=== PATIENT | female | born 1940 | race Caucasian/White ===

== ENCOUNTER 2016-06-10 19:14 | Observation (INO) | payer OTHER ==
[~2016-06-10] VITALS: Ht 157.5 cm; Wt 81.2 kg
[~2016-06-10 19:14] MED LIST: AMBIEN10 M1 PO; BYETTA; BYETTA PEN250 MCG/M1; BYETTA PEN250 MCG/M1 SC; BYETTA PEN250 MCG/ML PO; COLCRYS0.6 MG PO; GLUCOPHAGE500 MG PO; HUMULIN 70100 UNIT/1; HUMULIN 70100 UNIT/2 SQ; INDOCIN50 MG PO; LASIX40 MG PO; LIPITOR10 MG PO; LIPITOR80 MG PO; METFORMIN HCL500 MG PO; METOPROLOL SUCC25 MG PO; METOPROLOL TART25 MG PO; NITROGLYCERIN0.4 MG SL; NITROSTAT,NITR0.4 M1 SL; NITROSTAT0.4 MG SL; PLAVIX75 MG PO; PRILOSEC40 MG; PRILOSEC40 MG PO; TRICOR145 MG PO; ULTRAM50 MG PO; ZANTAC150 M1 PO; ZANTAC150 MG PO; ZETIA10 MG PO
[2016-06-10 19:43] LABS: HEMATOCRIT 34.7 % (36.0-46.0); MCH 26.7 PG (29.0-34.0); MCV 89.2 FL (83-99); MEAN PLAT.VOLUME 10.8 uM^3 (9.5-12.4); PLATELET COUNT 166 K/uL (156-360); RBC DIS.WIDTH-CV 16.4 % (11.8-14.6); RBC DIS.WIDTH-SD 53.5 % (39-53); RED BLOOD COUNT 3.89 M/uL (3.80-5.20)
[2016-06-10 19:51] LABS: CHLORIDE 105 mEq/L (99-109); POTASSIUM 5.1 mEq/L (3.7-5.4); SODIUM 143 mEq/L (136-147)
[2016-06-10 19:53] LABS: GLUCOSE 147 mg/dL (70-99)
[2016-06-10 19:55] LABS: ANION GAP 9 MEQ/L (2-14)
[2016-06-10 19:57] LABS: GFR ESTIMATE (CALCULATED) 42 mL/min/
[2016-06-10 19:58] LABS: UREA NITROGEN (BUN) 29 mg/dL (9-23)
[2016-06-10 20:50] LABS: TROP-I INTERPRETATION NEGATIVE; TROPONIN-I < 0.01 ng/mL (0.0-0.30)
[2016-06-10] MEDS ORDERED: ATORVASTATIN CA40 MG PO (22:06)
[2016-06-10] MEDS ORDERED: CRESTOR40 MG PO (22:07)
[2016-06-10] MEDS ORDERED: NORCO 5/3251 TABLET PO (22:08)
[2016-06-10] MEDS ORDERED: MIRAPEX0.25 MG PO (22:09)
[2016-06-10] MEDS ORDERED: GLIMEPIRIDE1 MG PO (22:09)
[2016-06-11 01:07] VITALS: BP 103/53
[2016-06-11 02:05] LABS: POINT-OF-CARE METER ID UU13113700
[2016-06-11 03:48] LABS: HEMATOCRIT 30.6 % (36.0-46.0); MCH 26.8 PG (29.0-34.0); MCHC 30.4 G/DL (30.0-36.0); MCV 88.2 FL (83-99); MEAN PLAT.VOLUME 11.2 uM^3 (9.5-12.4); PLATELET COUNT 157 K/uL (156-360); RBC DIS.WIDTH-CV 16.2 % (11.8-14.6); RBC DIS.WIDTH-SD 52.7 % (39-53); RED BLOOD COUNT 3.47 M/uL (3.80-5.20); WHITE BLOOD COUNT 5.3 K/uL (4.1-10.2)
[2016-06-11 03:58] LABS: CHLORIDE 107 mEq/L (99-109); POTASSIUM 4.1 mEq/L (3.7-5.4); SODIUM 141 mEq/L (136-147)
[2016-06-11 04:00] LABS: GLUCOSE 158 mg/dL (70-99)
[2016-06-11 04:01] LABS: ANION GAP 7 MEQ/L (2-14)
[2016-06-11 04:02] LABS: TOTAL BILIRUBIN 0.2 mg/dL (0.0-1.0)
[2016-06-11 04:04] LABS: ALKALINE PHOSPHATASE 67 IU/L (3-129); GFR ESTIMATE (CALCULATED) 51 mL/min/
[2016-06-11 04:05] LABS: UREA NITROGEN (BUN) 29 mg/dL (9-23)
[2016-06-11 04:11] LABS: TROP-I INTERPRETATION NEGATIVE; TROPONIN-I < 0.01 ng/mL (0.0-0.30)
[2016-06-11 04:24] VITALS: BP 99/52
[2016-06-11 08:01] VITALS: BP 122/68
[2016-06-11 09:21] LABS: TROP-I INTERPRETATION NEGATIVE; TROPONIN-I < 0.01 ng/mL (0.0-0.30)
[2016-06-11 11:18] VITALS: BP 105/55
[2016-06-11 11:50] LABS: POINT-OF-CARE METER ID UU13113700
[2016-06-11] MEDS ORDERED: METOPROLOL TART25 MG PO (17:03)
== END 2016-06-11 13:55 | disposition home or self-care (01) ==
LOC: EME 19:14 → EDOF 23:05 → 5WEST 23:05
PROVIDERS: Hospitalist; Internal Medicine
DX: R07.89 Other chest pain (principal); N17.9 Acute kidney failure, unspecified; R60.0 Localized edema; R00.1 Bradycardia, unspecified; I25.10 Atherosclerotic heart disease of native coronary artery without angina pectoris; I25.2 Old myocardial infarction; Z95.5 Presence of coronary angioplasty implant and graft; I10 Essential (primary) hypertension; E78.5 Hyperlipidemia, unspecified; E11.9 Type 2 diabetes mellitus without complications; G20 Parkinson's disease; E78.00 Pure hypercholesterolemia, unspecified; K21.9 Gastro-esophageal reflux disease without esophagitis
CPT/HCPCS: 71020; 80048; 80053; 82948; 83880; 84484; 85027; 93005; 93306; G0378; J1644

== ENCOUNTER 2016-07-22 09:05 | Inpatient (IN) | payer OTHER ==
[~2016-07-22] VITALS: Ht 157.5 cm; Wt 72.6 kg
[~2016-07-22 09:05] MED LIST changes: +ATORVASTATIN CA40 MG PO; +CRESTOR40 MG PO; +GLIMEPIRIDE1 MG PO; +LOPRESSOR25 MG PO; +LYRICA50 MG PO; +MIRAPEX0.25 MG PO; +NORCO 5/3251 TABLET PO
[2016-07-22 11:24] VITALS: BP 135/60
[2016-07-22 12:04] LABS: POINT-OF-CARE METER ID UU14174212; POINT-OF-CARE USER ID AHSRSCSLC11
[2016-07-22 18:37] LABS: POINT-OF-CARE METER ID UU13113675
[2016-07-22 22:00] VITALS: BP 118/57
[2016-07-22 22:21] VITALS: BP 118/57
[2016-07-23] VITALS (15 sets, daily range): BP systolic 67–142; BP diastolic 34–92
[2016-07-23 06:09] LABS: POINT-OF-CARE METER ID UU14188577
[2016-07-23 16:49] LABS: EOSINOPHIL (%) 0.2 % (0-5); HEMATOCRIT 25.8 % (36.0-46.0); IMMATURE GRANULOCYTE (%) 0.4 % (0.0-0.7); INSTRUMENT ABS NEUTROPHIL CT 7.5 K/uL; LYMPHOCYTE COUNT 0.4 K/uL (1.0-2.8); MCH 27.1 PG (29.0-34.0); MCV 87.5 FL (83-99); MEAN PLAT.VOLUME 11.8 uM^3 (9.5-12.4); MONOCYTE (%) 6.7 % (3-12); MONOCYTE COUNT 0.6 K/uL (0-0.8); NEUTROPHIL (%) 88.2 % (45-76); NEUTROPHIL COUNT 7.5 K/uL (1.8-6.4); PLATELET COUNT 123 K/uL (156-360); RBC DIS.WIDTH-CV 15.6 % (11.8-14.6); RBC DIS.WIDTH-SD 49.9 % (39-53)
[2016-07-23 17:13] LABS: ANION GAP 8 MEQ/L (2-14); CHLORIDE 108 MEQ/L (99-109); POTASSIUM 4.1 MEQ/L (3.7-5.4); SAMPLE HEMOLYSIS CHECK 0; SAMPLE ICTERIC CHECK 0; SAMPLE LIPEMIA CHECK 0; SODIUM 139 MEQ/L (136-147)
[2016-07-23 17:18] LABS: GFR ESTIMATE (CALCULATED) 46 mL/min/; GLUCOSE 138 mg/dL (70-99); UREA NITROGEN (BUN) 22 mg/dL (9-23)
[2016-07-23 17:36] LABS: TROP-I INTERPRETATION NEGATIVE; TROPONIN-I 0.03 ng/mL (0.0-0.30)
[2016-07-23 18:01] LABS: RED BLOOD COUNT 2.95 M/uL (3.80-5.20); WHITE BLOOD COUNT 8.5 K/uL (4.1-10.2)
[2016-07-23 21:16] LABS: POINT-OF-CARE METER ID UU14188577
[2016-07-24] VITALS (8 sets, daily range): BP systolic 92–170; BP diastolic 44–64
[2016-07-24 05:22] LABS: EOSINOPHIL (%) 0.7 % (0-5); EOSINOPHIL COUNT 0.1 K/uL (0-0.3); HEMATOCRIT 31.5 % (36.0-46.0); IMMATURE GRANULOCYTE (%) 0.5 % (0.0-0.7); INSTRUMENT ABS NEUTROPHIL CT 7.4 K/uL; LYMPHOCYTE COUNT 0.6 K/uL (1.0-2.8); MCH 27.1 PG (29.0-34.0); MCHC 31.4 G/DL (30.0-36.0); MCV 86.3 FL (83-99); MEAN PLAT.VOLUME 11.8 uM^3 (9.5-12.4); MONOCYTE (%) 8.4 % (3-12); MONOCYTE COUNT 0.8 K/uL (0-0.8); NEUTROPHIL (%) 83.4 % (45-76); NEUTROPHIL COUNT 7.4 K/uL (1.8-6.4); PLATELET COUNT 123 K/uL (156-360); RBC DIS.WIDTH-SD 47.8 % (39-53); WHITE BLOOD COUNT 8.9 K/uL (4.1-10.2)
[2016-07-24 05:25] LABS: RED BLOOD COUNT 3.65 M/uL (3.80-5.20)
[2016-07-24 11:56] LABS: POINT-OF-CARE METER ID UU14149397
[2016-07-24 21:44] LABS: POINT-OF-CARE METER ID UU14188577
[2016-07-25 04:39] VITALS: BP 126/66
[2016-07-25 08:49] VITALS: BP 127/59
[2016-07-25 12:19] LABS: POINT-OF-CARE METER ID UU14188577
[2016-07-25 16:26] VITALS: BP 111/57
[2016-07-25] MEDS ORDERED: TRAMADOL HCL50 MG PO (16:46)
[2016-07-25] MEDS ORDERED: BACTRIM,SEPT1 TABLET PO (16:46)
[2016-07-25 16:56] LABS: POINT-OF-CARE METER ID UU14188577
[2016-07-25 17:22] LABS: GLUCOSE 61 mg/dL (70-99)
== END 2016-07-25 19:25 | DRG 460 ==
LOC: 2SOUTH → 3EAST 10:25 → 2SOUTH 12:42 → 3EAST 21:33
PROVIDERS: Neurological Surgery; Physician Assistant Surgical
DX: S32.030G Wedge compression fracture of third lumbar vertebra, subsequent encounter for fracture with delayed healing (principal); I95.9 Hypotension, unspecified; G20 Parkinson's disease; M48.06 Spinal stenosis, lumbar region; M54.16 Radiculopathy, lumbar region; M43.22 Fusion of spine, cervical region; E66.9 Obesity, unspecified; R41.82 Altered mental status, unspecified; I45.10 Unspecified right bundle-branch block; M81.0 Age-related osteoporosis without current pathological fracture
CPT/HCPCS: 70450; 71010; 72100; 76000; 80048; 82948; 84484; 84999; 85025; 86900; 86901; 86920; 87086; 93005; 94799; 97530 GO; 97530 GP; C1713; C1768; J0330; J0690; J1170; J1580; J1815; J1940; J2250; J2405; J2930; J3010; J3370; J3480; J7030; J7040; P9016; S0020

== ENCOUNTER 2016-09-16 09:46 | Observation (INO) | payer OTHER ==
[~2016-09-16] VITALS: Ht 157.5 cm; Wt 73.5 kg
[~2016-09-16 09:46] MED LIST changes: +BACTRIM,SEPT1 TABLET PO; +TRAMADOL HCL50 MG PO
[2016-09-16 10:38] LABS: ADD MIUA? YES; BILIRUBIN NEGATIVE; BLOOD SMALL; COLOR YELLOW ((YELLOW)); GLUCOSE (STRIP) NEGATIVE; KETONES NEGATIVE; LEUKOCYTES NEGATIVE; NITRITE NEGATIVE; PROTEIN (STRIP) 30; SPECIFIC GRAVITY 1.016 (1.000-1.030); UROBILINOGEN 0.2 MG/DL (0.2-1.0)
[2016-09-16 10:44] LABS: EOSINOPHIL (%) 1.1 % (0-5); EOSINOPHIL COUNT 0.1 K/uL (0-0.3); IMMATURE GRANULOCYTE (%) 0.3 % (0.0-0.7); INSTRUMENT ABS NEUTROPHIL CT 6.1 K/uL; LYMPHOCYTE COUNT 0.8 K/uL (1.0-2.8); MCHC 31.4 G/DL (30.0-36.0); MCV 85.9 FL (83-99); MEAN PLAT.VOLUME 10.9 uM^3 (9.5-12.4); MONOCYTE (%) 4.4 % (3-12); MONOCYTE COUNT 0.3 K/uL (0-0.8); NEUTROPHIL (%) 83.7 % (45-76); NEUTROPHIL COUNT 6.1 K/uL (1.8-6.4); PLATELET COUNT 144 K/uL (156-360); RED BLOOD COUNT 4.19 M/uL (3.80-5.20); WHITE BLOOD COUNT 7.2 K/uL (4.1-10.2)
[2016-09-16 10:54] LABS: CHLORIDE 104 mEq/L (99-109); SODIUM 139 mEq/L (136-147)
[2016-09-16 10:56] LABS: GLUCOSE 44 mg/dL (70-99)
[2016-09-16 10:57] LABS: ANION GAP 10 MEQ/L (2-14)
[2016-09-16 11:00] LABS: GFR ESTIMATE (CALCULATED) 51 mL/min/
[2016-09-16 11:01] LABS: UREA NITROGEN (BUN) 19 mg/dL (9-23)
[2016-09-16 11:11] LABS: TROP-I INTERPRETATION NEGATIVE; TROPONIN-I < 0.01 ng/mL (0.0-0.30)
[2016-09-16 11:36] LABS: BACTERIA 1+ /HPF; EPITHELIAL CELLS RARE /HPF; MUCUS NONE SEEN /LPF; RED BLOOD CELLS RARE /HPF (0-5); WHITE BLOOD CELLS NONE SEEN /HPF (0-5)
[2016-09-16] MEDS ORDERED: LASIX20 MG PO (12:26)
[2016-09-16] MEDS ORDERED: NITROSTAT0.4 MG SL (12:28)
[2016-09-16] MEDS ORDERED: TRAMADOL HCL50 MG PO (12:36)
[2016-09-16] MEDS ORDERED: ERGOCALCIF50000 UNIT PO (12:37)
[2016-09-16] MEDS ORDERED: PLAVIX75 MG PO (12:37)
[2016-09-16] MEDS ORDERED: CALCIUM 600 +1 EAC3 PO (12:38)
[2016-09-16] MEDS ORDERED: TYLENOL EXTRA500 MG PO (12:38)
[2016-09-16] MEDS ORDERED: PANTOPRAZOLE SO40 MG PO (12:39)
[2016-09-16] MEDS ORDERED: VITAMIN B-12250 MCG PO (12:39)
[2016-09-16 13:07] LABS: POINT-OF-CARE METER ID UU14100415
[2016-09-16 14:05] LABS: POINT-OF-CARE METER ID UU14100415
[2016-09-16 15:59] VITALS: BP 121/56
[2016-09-16 17:01] LABS: TROP-I INTERPRETATION NEGATIVE; TROPONIN-I 0.01 ng/mL (0.0-0.30)
[2016-09-16 18:56] LABS: GLUCOSE 206 mg/dL (70-99)
[2016-09-16 19:26] VITALS: BP 102/48
[2016-09-16 22:11] LABS: POINT-OF-CARE METER ID UU13113700
[2016-09-16 23:41] VITALS: BP 117/53
[2016-09-17 00:07] VITALS: BP 109/55
[2016-09-17 01:03] LABS: TROP-I INTERPRETATION NEGATIVE; TROPONIN-I 0.01 ng/mL (0.0-0.30)
[2016-09-17 02:01] LABS: POINT-OF-CARE METER ID UU14162513
[2016-09-17 03:59] VITALS: BP 120/57
[2016-09-17 06:09] LABS: POINT-OF-CARE METER ID UU14162513
[2016-09-17 09:23] VITALS: BP 152/72
[2016-09-17 10:51] LABS: POINT-OF-CARE METER ID UU14100415
[2016-09-17 11:32] VITALS: BP 138/65
[2016-09-17] MEDS ORDERED: ZOFRAN4 MG PO (14:26)
== END 2016-09-17 12:11 | disposition home or self-care (01) ==
LOC: EME 09:46 → EDOF 12:11 → 5WEST 12:11 → EDOF 12:11 → 5WEST 15:03
PROVIDERS: Emergency Medicine; Hospitalist; Internal Medicine
DX: E11.649 Type 2 diabetes mellitus with hypoglycemia without coma (principal); Z79.84 Long term (current) use of oral hypoglycemic drugs; I25.10 Atherosclerotic heart disease of native coronary artery without angina pectoris; I25.2 Old myocardial infarction; I10 Essential (primary) hypertension; E78.5 Hyperlipidemia, unspecified; G20 Parkinson's disease; Z79.02 Long term (current) use of antithrombotics/antiplatelets; Z83.3 Family history of diabetes mellitus; Z88.6 Allergy status to analgesic agent; Z91.040 Latex allergy status; Z88.8 Allergy status to other drugs, medicaments and biological substances
CPT/HCPCS: 70450; 71010; 80048; 81003; 82533 91; 82947 91; 82948; 83525; 84484; 84681 90; 85025; 93005; 99281; 99285; G0378; G8978 GP CI; G8979 GP CH; G8987 GO CI; G8988 GO CH; J1650; J7042

== ENCOUNTER → 2017-02-11 | Outpatient (CLI) | payer OTHER ==
[~2017-02-11] VITALS: Ht 157.5 cm; Wt 63.5 kg
[~2017-02-11] MED LIST changes: +CALCIUM 600 +1 EAC3 PO; +ERGOCALCIF50000 UNIT PO; +LASIX20 MG PO; +MIRAPEX0.5 MG PO; +PANTOPRAZOLE SO40 MG PO; +PROTONIX40 MG PO; +SEROQUEL50 MG PO; +TYLENOL EXTRA500 MG PO; +TYLENOL PM EX-1 EACH PO; +VITAMIN B-12250 MCG PO; +ZOFRAN4 MG PO
[2017-02-11 13:22] LABS: POINT-OF-CARE METER ID UU14107333
[2017-02-11 13:47] LABS: EOSINOPHIL (%) 1.6 % (0-5); EOSINOPHIL COUNT 0.1 K/uL (0-0.3); HEMATOCRIT 32.6 % (36.0-46.0); IMMATURE GRANULOCYTE (%) 0.2 % (0.0-0.7); INSTRUMENT ABS NEUTROPHIL CT 2.9 K/uL; LYMPHOCYTE COUNT 0.9 K/uL (1.0-2.8); MCH 29.2 PG (29.0-34.0); MCHC 32.2 G/DL (30.0-36.0); MCV 90.8 FL (83-99); MEAN PLAT.VOLUME 11.4 uM^3 (9.5-12.4); MONOCYTE (%) 9.3 % (3-12); MONOCYTE COUNT 0.4 K/uL (0-0.8); NEUTROPHIL (%) 67.8 % (45-76); NEUTROPHIL COUNT 2.9 K/uL (1.8-6.4); PLATELET COUNT 150 K/uL (156-360); RBC DIS.WIDTH-CV 15.9 % (11.8-14.6); RBC DIS.WIDTH-SD 52.6 % (39-53); RED BLOOD COUNT 3.59 M/uL (3.80-5.20); WHITE BLOOD COUNT 4.3 K/uL (4.1-10.2)
[2017-02-11 14:02] LABS: INTER. NORMALIZED RATIO 1.1; PROTHROMBIN TIME 12.1 SEC (10.2-12.9)
[2017-02-11 14:10] LABS: PTT 20.2 SEC (25-37)
[2017-02-11 16:34] LABS: POINT-OF-CARE METER ID UU13113819
== END | disposition home or self-care (01) ==
LOC: AMB 12:21
PROVIDERS: Internal Medicine Pulmonary Disease
DX: R91.8 Other nonspecific abnormal finding of lung field (principal); I10 Essential (primary) hypertension; G20 Parkinson's disease; I25.10 Atherosclerotic heart disease of native coronary artery without angina pectoris; I45.10 Unspecified right bundle-branch block; E78.5 Hyperlipidemia, unspecified; E11.9 Type 2 diabetes mellitus without complications; Z87.891 Personal history of nicotine dependence; Z79.02 Long term (current) use of antithrombotics/antiplatelets; Z79.84 Long term (current) use of oral hypoglycemic drugs; I25.2 Old myocardial infarction; Z95.5 Presence of coronary angioplasty implant and graft
CPT/HCPCS: 71010; 76001; 82948; 85025; 85610; 85730; 87070; 87116; 87205; 87206; 88108; 88173; 88305; J0330; J0461; J2405; J2710; J3010

== ENCOUNTER 2017-05-26 09:00 | Inpatient (IN) | payer OTHER ==
[~2017-05-26] VITALS: Ht 157.5 cm; Wt 60.0 kg
[2017-05-26 10:13] LABS: ALBUMIN 3.4 g/dL (3.2-4.8); CHLORIDE 100 mEq/L (99-109); POTASSIUM 3.4 mEq/L (3.7-5.4); SODIUM 138 mEq/L (136-147)
[2017-05-26 10:15] LABS: GLUCOSE 142 mg/dL (70-99); TOTAL PROTEIN 5.9 g/dL (6.4-8.3)
[2017-05-26 10:17] LABS: TOTAL BILIRUBIN 0.6 mg/dL (0.0-1.0)
[2017-05-26 10:18] LABS: BASOPHIL (%) 0.1 % (0-1); EOSINOPHIL (%) 0 % (0-5); HEMATOCRIT 32.7 % (36.0-46.0); HEMOGLOBIN 11.1 G/DL (11.9-15.5); IMMATURE GRANULOCYTE (%) 0.3 % (0.0-0.7); LYMPHOCYTE (%) 6.8 % (15-42); LYMPHOCYTE COUNT 0.6 K/uL (1.0-2.8); MCH 30.2 PG (29.0-34.0); MCHC 33.9 G/DL (30.0-36.0); MCV 88.9 FL (83-99); MONOCYTE (%) 6.9 % (3-12); MONOCYTE COUNT 0.6 K/uL (0-0.8); NEUTROPHIL (%) 85.9 % (45-76); NEUTROPHIL COUNT 7.7 K/uL (1.8-6.4); PLATELET COUNT 155 K/uL (156-360); RBC DIS.WIDTH-CV 15.5 % (11.8-14.6); RBC DIS.WIDTH-SD 50.5 % (39-53); RED BLOOD COUNT 3.68 M/uL (3.80-5.20)
[2017-05-26 10:19] LABS: ALKALINE PHOSPHATASE 62 IU/L (3-129); CREATININE 1.8 mg/dL (0.6-1.3); GFR ESTIMATE (CALCULATED) 29 mL/min/
[2017-05-26 10:20] LABS: UREA NITROGEN (BUN) 30 mg/dL (9-23)
[2017-05-26 10:21] LABS: AST (GOT) 41 IU/L (2-34)
[2017-05-26 10:22] LABS: ALT (GPT) 18 IU/L (3-49); TOTAL CK 1553 IU/L (1-294)
[2017-05-26 10:23] LABS: TROP-I INTERPRETATION NEGATIVE; TROPONIN-I 0.04 ng/mL (0.0-0.30)
[2017-05-26 10:24] LABS: CREATINE KINASE 1553 IU/L (1-294)
[2017-05-26 10:28] LABS: CK-MB 20.1 ng/mL (0.0-4.9); CKMB RELATIVE INDEX 1.3 (0.0-3.9)
[2017-05-26 11:48] LABS: APPEARANCE SL.HAZY ((CLEAR)); BILIRUBIN NEGATIVE; BLOOD MODERATE; COLOR YELLOW ((YELLOW)); GLUCOSE (STRIP) NEGATIVE; KETONES NEGATIVE; LEUKOCYTES NEGATIVE; NITRITE NEGATIVE; PROTEIN (STRIP) 100; SPECIFIC GRAVITY 1.017 (1.000-1.030); UROBILINOGEN 0.2 MG/DL (0.2-1.0)
[2017-05-26 12:15] LABS: BACTERIA RARE /HPF; EPITHELIAL CELLS 2+ /HPF; HYALINE CASTS 0-5 /LPF; MUCUS TRACE /LPF; RED BLOOD CELLS 0-5 /HPF (0-5); UCUL ADDED? NO; WHITE BLOOD CELLS 0-5 /HPF (0-5)
[2017-05-26 13:38] LABS: HEMOGLOBIN A1c (GLYCOHEMOGLOB) 5.9 % (Below 5.7)
[2017-05-26] MEDS ORDERED: AMBIEN5 MG PO (14:49)
[2017-05-26] MEDS ORDERED: K-TAB10 MEQ PO (14:49)
[2017-05-26] MEDS ORDERED: SEROQUEL50 MG PO (14:50)
[2017-05-26] MEDS ORDERED: LASIX20 MG PO ×2 (14:50)
[2017-05-26] MEDS ORDERED: ZANTAC150 MG PO (14:51)
[2017-05-26 17:26] VITALS: BP 104/59
[2017-05-26 18:46] LABS: TROP-I INTERPRETATION NEGATIVE; TROPONIN-I 0.08 ng/mL (0.0-0.30)
[2017-05-26 23:10] VITALS: BP 108/62
[2017-05-27] VITALS (7 sets, daily range): BP systolic 91–188; BP diastolic 46–91
[2017-05-27 00:54] LABS: TROP-I INTERPRETATION NEGATIVE; TROPONIN-I 0.08 ng/mL (0.0-0.30)
[2017-05-27 07:40] LABS: HEMATOCRIT 28.3 % (36.0-46.0); HEMOGLOBIN 9.7 G/DL (11.9-15.5); MCH 30.2 PG (29.0-34.0); MCHC 34.3 G/DL (30.0-36.0); MCV 88.2 FL (83-99); RBC DIS.WIDTH-CV 15.9 % (11.8-14.6); RBC DIS.WIDTH-SD 51.3 % (39-53); RED BLOOD COUNT 3.21 M/uL (3.80-5.20); WHITE BLOOD COUNT 5.7 K/uL (4.1-10.2)
[2017-05-27 08:13] LABS: PLAT.SUFFICIENCY DECREASED; PLATELET CLUMPS PRESENT - PLATELET COUNTS APPEARS DECREASED
[2017-05-27 08:18] LABS: PLATELET COUNT UNABLE TO REPORT K/uL (156-360)
[2017-05-27 09:33] LABS: UREA NITROGEN (BUN) 24 mg/dL (9-23)
[2017-05-27 09:35] LABS: GLUCOSE 96 mg/dL (70-99)
[2017-05-27 10:51] LABS: CHLORIDE 109 mEq/L (99-109); POTASSIUM 3.4 mEq/L (3.7-5.4); SODIUM 143 mEq/L (136-147)
[2017-05-27 10:57] LABS: CREATININE 1.4 mg/dL (0.6-1.3); GFR ESTIMATE (CALCULATED) 39 mL/min/
[2017-05-27 11:04] LABS: CREATINE KINASE 2219 IU/L (1-294)
[2017-05-27 18:31] LABS: TROP-I INTERPRETATION NEGATIVE; TROPONIN-I 0.06 ng/mL (0.0-0.30)
[2017-05-28 00:24] VITALS: BP 105/57
[2017-05-28 03:33] VITALS: BP 113/69
[2017-05-28 06:41] LABS: BASOPHIL (%) 0.2 % (0-1); EOSINOPHIL COUNT 0.1 K/uL (0-0.3); HEMATOCRIT 27.8 % (36.0-46.0); IMMATURE GRANULOCYTE (%) 0.4 % (0.0-0.7); LYMPHOCYTE (%) 18.4 % (15-42); MCH 29.4 PG (29.0-34.0); MCHC 32.4 G/DL (30.0-36.0); MCV 90.8 FL (83-99); MONOCYTE (%) 6.3 % (3-12); MONOCYTE COUNT 0.3 K/uL (0-0.8); NEUTROPHIL (%) 73.7 % (45-76); NEUTROPHIL COUNT 3.8 K/uL (1.8-6.4); RBC DIS.WIDTH-CV 16.1 % (11.8-14.6); RBC DIS.WIDTH-SD 53.8 % (39-53); RED BLOOD COUNT 3.06 M/uL (3.80-5.20); WHITE BLOOD COUNT 5.2 K/uL (4.1-10.2)
[2017-05-28 06:44] LABS: PLATELET COUNT 126 K/uL (156-360)
[2017-05-28 07:08] LABS: CHLORIDE 109 MEQ/L (99-109); CREATININE 1.3 MG/DL (0.6-1.3); GFR ESTIMATE (CALCULATED) 42 mL/min/; GLUCOSE 106 mg/dL (70-99); POTASSIUM 3.6 MEQ/L (3.7-5.4); SODIUM 142 MEQ/L (136-147); UREA NITROGEN (BUN) 19 mg/dL (9-23)
[2017-05-28 07:11] LABS: CREATINE KINASE 1136 IU/L (1-294)
[2017-05-28 07:55] VITALS: BP 118/72
[2017-05-28 15:48] VITALS: BP 94/57
[2017-05-28 19:55] VITALS: BP 98/52
[2017-05-29 00:23] VITALS: BP 97/57
[2017-05-29 04:15] VITALS: BP 99/60
[2017-05-29 09:14] VITALS: BP 108/68
[2017-05-29 12:28] VITALS: BP 94/49
[2017-05-29] MEDS ORDERED: ELIQUIS5 MG PO (12:39)
== END 2017-05-29 15:46 | DRG 176 ==
LOC: EME 09:00 → 5SOUTH 11:08 → EDOF 11:08 → ENRESERV 11:27 → 5SOUTH 16:29 → ENPENDDIS 05-29 13:37 → 5SOUTH 05-29 15:46
PROVIDERS: Emergency Medicine; Internal Medicine
DX: I26.99 Other pulmonary embolism without acute cor pulmonale (principal); M62.82 Rhabdomyolysis; I82.431 Acute embolism and thrombosis of right popliteal vein; I12.9 Hypertensive chronic kidney disease with stage 1 through stage 4 chronic kidney disease, or unspecified chronic kidney disease; E11.22 Type 2 diabetes mellitus with diabetic chronic kidney disease; N18.4 Chronic kidney disease, stage 4 (severe); G20 Parkinson's disease; F02.80 Dementia in other diseases classified elsewhere, unspecified severity, without behavioral disturbance, psychotic disturbance, mood disturbance, and anxiety; M19.011 Primary osteoarthritis, right shoulder; E87.6 Hypokalemia; I25.10 Atherosclerotic heart disease of native coronary artery without angina pectoris; E78.5 Hyperlipidemia, unspecified; E53.8 Deficiency of other specified B group vitamins; Z66 Do not resuscitate; I25.2 Old myocardial infarction; Z95.5 Presence of coronary angioplasty implant and graft; Z79.84 Long term (current) use of oral hypoglycemic drugs; Z79.02 Long term (current) use of antithrombotics/antiplatelets; Z87.891 Personal history of nicotine dependence; Z91.81 History of falling
CPT/HCPCS: 70450; 71045; 71046; 72170; 73030; 78580; 80048; 80053; 81003; 82550; 82553; 82948; 83036; 83605; 84484; 85025; 85027; 87040; 93005; 93970; 95819; 97530 GO; 97530 GP; 99281; 99285; A9540; G8987 GO CM; G8988 GO CK; J1644; J7030; J7040

== ENCOUNTER 2017-09-07 13:34 | Inpatient (IN) | payer OTHER ==
[~2017-09-07] VITALS: Ht 157.5 cm; Wt 60.0 kg
[~2017-09-07 13:34] MED LIST changes: +AMBIEN5 MG PO; +ELIQUIS5 MG PO; +POTASSIUM CHLO10 ME4 PO
[2017-09-07 15:17] LABS: HEMATOCRIT 36.3 % (36.0-46.0); HEMOGLOBIN 12.2 G/DL (11.9-15.5); MCH 28.6 PG (29.0-34.0); MCHC 33.6 G/DL (30.0-36.0); PLATELET COUNT 179 K/uL (156-360); RBC DIS.WIDTH-SD 43.7 % (39-53); RED BLOOD COUNT 4.27 M/uL (3.80-5.20); WHITE BLOOD COUNT 8.3 K/uL (4.1-10.2)
[2017-09-07 15:30] LABS: CHLORIDE 91 mEq/L (99-109); POTASSIUM 2.5 mEq/L (3.7-5.4)
[2017-09-07 15:32] LABS: GLUCOSE 207 mg/dL (70-99)
[2017-09-07 15:34] LABS: SODIUM 135 mEq/L (136-147)
[2017-09-07 15:36] LABS: CREATININE 2.1 mg/dL (0.6-1.3); GFR ESTIMATE (CALCULATED) 24 mL/min/; UREA NITROGEN (BUN) 85 mg/dL (9-23)
[2017-09-07 15:44] LABS: TROP-I INTERPRETATION NEGATIVE; TROPONIN-I 0.12 ng/mL (0.0-0.30)
[2017-09-07] MEDS ORDERED: BUSPAR10 MG PO (17:44)
[2017-09-07] MEDS ORDERED: GERI-HYDROLAC222 M1 TP (17:50)
[2017-09-07] MEDS ORDERED: DAKINS SOLUTIO473 M1 TP (17:51)
[2017-09-07] MEDS ORDERED: ELIQUIS5 MG PO (17:52)
[2017-09-07] MEDS ORDERED: BISAC-EVAC10 MG PR (17:52)
[2017-09-07] MEDS ORDERED: DUONEB 2.5-0.5 M3 ML AEROSOL (17:55)
[2017-09-07] MEDS ORDERED: IRON325 M1 PO (17:55)
[2017-09-07] MEDS ORDERED: OMEPRAZOLE20 MG PO (17:57)
[2017-09-07] MEDS ORDERED: MILK OF MAGN PO (17:57)
[2017-09-07] MEDS ORDERED: REGLAN5 MG PO (18:00)
[2017-09-07] MEDS ORDERED: ROBITUSSIN COU237 M2 PO (18:01)
[2017-09-07] MEDS ORDERED: PAIN RELIEVER325 MG PO (18:03)
[2017-09-07] MEDS ORDERED: TRAMADOL HCL50 MG PO (18:03)
[2017-09-07] MEDS ORDERED: FLEET ENEMA-AD118 ML PR (18:10)
[2017-09-07] MEDS ORDERED: ENULOSE10 GM/15 M PO (18:12)
[2017-09-07 19:30] VITALS: BP 89/48
[2017-09-07 21:11] LABS: TROP-I INTERPRETATION NEGATIVE; TROPONIN-I 0.13 ng/mL (0.0-0.30)
[2017-09-07 22:00] VITALS: BP 89/50
[2017-09-08 04:00] VITALS: BP 95/50
[2017-09-08 05:55] LABS: CHLORIDE 96 MEQ/L (99-109); CREATININE 1.9 MG/DL (0.6-1.3); GFR ESTIMATE (CALCULATED) 27 mL/min/; SODIUM 139 MEQ/L (136-147); UREA NITROGEN (BUN) 75 mg/dL (9-23)
[2017-09-08 06:07] LABS: GLUCOSE 71 mg/dL (70-99); POTASSIUM 3.3 MEQ/L (3.7-5.4)
[2017-09-08 08:00] VITALS: BP 96/51
[2017-09-08 09:58] LABS: TROP-I INTERPRETATION NEGATIVE; TROPONIN-I 0.11 ng/mL (0.0-0.30)
[2017-09-08 12:07] VITALS: BP 94/55
[2017-09-08 16:37] VITALS: BP 103/51
[2017-09-08 19:51] VITALS: BP 95/54
[2017-09-08 23:02] VITALS: BP 92/56
[2017-09-09 03:06] VITALS: BP 102/66
[2017-09-09 05:57] LABS: CHLORIDE 97 MEQ/L (99-109); CREATININE 1.5 MG/DL (0.6-1.3); GFR ESTIMATE (CALCULATED) 36 mL/min/; POTASSIUM 3.5 MEQ/L (3.7-5.4); SODIUM 137 MEQ/L (136-147); UREA NITROGEN (BUN) 49 mg/dL (9-23)
[2017-09-09 06:12] LABS: GLUCOSE 197 mg/dL (70-99)
[2017-09-09 08:00] VITALS: BP 96/54
[2017-09-09 12:00] VITALS: BP 109/58
[2017-09-09 16:00] VITALS: BP 136/68
[2017-09-09 19:48] VITALS: BP 112/64
[2017-09-10] VITALS (7 sets, daily range): BP systolic 95–123; BP diastolic 54–67
[2017-09-10 06:22] LABS: ALBUMIN 2.9 G/DL (3.2-4.8); ALKALINE PHOSPHATASE 63 IU/L (3-129); ALT (GPT) 9 IU/L (3-49); AST (GOT) 19 IU/L (2-34); CHLORIDE 101 MEQ/L (99-109); CREATININE 1.3 MG/DL (0.6-1.3); GFR ESTIMATE (CALCULATED) 42 mL/min/; SODIUM 139 MEQ/L (136-147); TOTAL BILIRUBIN 0.6 MG/DL (0.0-1.0); UREA NITROGEN (BUN) 32 mg/dL (9-23)
[2017-09-10 06:28] LABS: GLUCOSE 119 mg/dL (70-99)
[2017-09-11 03:32] VITALS: BP 96/54
[2017-09-11 05:52] LABS: CHLORIDE 103 MEQ/L (99-109); CREATININE 1.2 MG/DL (0.6-1.3); GFR ESTIMATE (CALCULATED) 46 mL/min/; GLUCOSE 113 mg/dL (70-99); POTASSIUM 2.8 MEQ/L (3.7-5.4); SODIUM 140 MEQ/L (136-147); UREA NITROGEN (BUN) 26 mg/dL (9-23)
[2017-09-11 08:18] VITALS: BP 109/62
[2017-09-11 12:07] VITALS: BP 114/64
[2017-09-11 15:45] VITALS: BP 101/53
[2017-09-11 19:33] VITALS: BP 97/56
[2017-09-11 23:41] VITALS: BP 100/53
[2017-09-12 03:50] VITALS: BP 109/59
[2017-09-12 06:12] LABS: ALBUMIN 2.7 G/DL (3.2-4.8); ALKALINE PHOSPHATASE 48 IU/L (3-129); ALT (GPT) 7 IU/L (3-49); AST (GOT) 14 IU/L (2-34); CHLORIDE 105 MEQ/L (99-109); CREATININE 1.2 MG/DL (0.6-1.3); GFR ESTIMATE (CALCULATED) 46 mL/min/; GLUCOSE 111 mg/dL (70-99); POTASSIUM 2.6 MEQ/L (3.7-5.4); SODIUM 140 MEQ/L (136-147); TOTAL BILIRUBIN 0.5 MG/DL (0.0-1.0); TOTAL PROTEIN 4.7 G/DL (6.4-8.3); UREA NITROGEN (BUN) 18 mg/dL (9-23)
[2017-09-12 07:34] VITALS: BP 109/59
[2017-09-12 12:55] VITALS: BP 124/65
[2017-09-12 15:05] VITALS: BP 109/67
[2017-09-12 20:06] VITALS: BP 116/63
[2017-09-13] VITALS: BP 112/62
[2017-09-13 04:35] VITALS: BP 115/60
[2017-09-13 06:19] LABS: ALBUMIN 2.9 G/DL (3.2-4.8); ALKALINE PHOSPHATASE 62 IU/L (3-129); ALT (GPT) 7 IU/L (3-49); AST (GOT) 14 IU/L (2-34); CHLORIDE 106 MEQ/L (99-109); CREATININE 1.1 MG/DL (0.6-1.3); GFR ESTIMATE (CALCULATED) 51 mL/min/; GLUCOSE 132 mg/dL (70-99); SODIUM 141 MEQ/L (136-147); TOTAL BILIRUBIN 0.5 MG/DL (0.0-1.0); TOTAL PROTEIN 4.9 G/DL (6.4-8.3); UREA NITROGEN (BUN) 12 mg/dL (9-23)
[2017-09-13 07:33] VITALS: BP 103/51
[2017-09-13 14:57] VITALS: BP 102/58
[2017-09-13 21:00] VITALS: BP 111/61
[2017-09-14] VITALS: BP 118/58
[2017-09-14 05:19] VITALS: BP 102/55
[2017-09-14 05:38] LABS: HEMATOCRIT 29.3 % (36.0-46.0); HEMOGLOBIN 9.4 G/DL (11.9-15.5); MCH 27.2 PG (29.0-34.0); MCHC 32.1 G/DL (30.0-36.0); MCV 84.9 FL (83-99); PLATELET COUNT 166 K/uL (156-360); RBC DIS.WIDTH-CV 13.7 % (11.8-14.6); RBC DIS.WIDTH-SD 42.4 % (39-53); RED BLOOD COUNT 3.45 M/uL (3.80-5.20); WHITE BLOOD COUNT 3.7 K/uL (4.1-10.2)
[2017-09-14 06:03] LABS: CHLORIDE 109 MEQ/L (99-109); GFR ESTIMATE (CALCULATED) 57 mL/min/; GLUCOSE 121 mg/dL (70-99); POTASSIUM 3.8 MEQ/L (3.7-5.4); SODIUM 143 MEQ/L (136-147); UREA NITROGEN (BUN) 9 mg/dL (9-23)
[2017-09-14 07:10] VITALS: BP 109/73
[2017-09-14 11:41] VITALS: BP 106/62
[2017-09-14 15:49] VITALS: BP 110/74
[2017-09-14 21:00] VITALS: BP 127/69
[2017-09-15 01:29] VITALS: BP 126/76
[2017-09-15 05:54] VITALS: BP 151/81
[2017-09-15 06:29] LABS: ALBUMIN 2.7 G/DL (3.2-4.8); ALKALINE PHOSPHATASE 62 IU/L (3-129); ALT (GPT) 9 IU/L (3-49); AST (GOT) 17 IU/L (2-34); CHLORIDE 109 MEQ/L (99-109); CREATININE 0.9 MG/DL (0.6-1.3); GFR ESTIMATE (CALCULATED) > 59 mL/min/; GLUCOSE 108 mg/dL (70-99); POTASSIUM 4.1 MEQ/L (3.7-5.4); SODIUM 142 MEQ/L (136-147); TOTAL BILIRUBIN 0.5 MG/DL (0.0-1.0); TOTAL PROTEIN 4.7 G/DL (6.4-8.3); UREA NITROGEN (BUN) 8 mg/dL (9-23)
[2017-09-15 07:32] LABS: HEMOGLOBIN 10.3 G/DL (11.9-15.5); MCH 27.5 PG (29.0-34.0); MCHC 32.2 G/DL (30.0-36.0); MCV 85.6 FL (83-99); PLATELET COUNT 182 K/uL (156-360); RBC DIS.WIDTH-CV 13.6 % (11.8-14.6); RBC DIS.WIDTH-SD 42.4 % (39-53); RED BLOOD COUNT 3.74 M/uL (3.80-5.20); WHITE BLOOD COUNT 4.4 K/uL (4.1-10.2)
[2017-09-15 08:16] VITALS: BP 145/65
[2017-09-15 11:33] VITALS: BP 109/72
[2017-09-15 16:02] VITALS: BP 97/55
[2017-09-15 19:51] VITALS: BP 141/73
[2017-09-16 00:26] VITALS: BP 103/58
[2017-09-16 04:00] VITALS: BP 90/55
[2017-09-16 06:02] LABS: HEMATOCRIT 31.9 % (36.0-46.0); HEMOGLOBIN 10.2 G/DL (11.9-15.5); MCH 27.4 PG (29.0-34.0); MCV 85.8 FL (83-99); PLATELET COUNT 200 K/uL (156-360); RBC DIS.WIDTH-CV 13.6 % (11.8-14.6); RBC DIS.WIDTH-SD 42.6 % (39-53); RED BLOOD COUNT 3.72 M/uL (3.80-5.20); WHITE BLOOD COUNT 4.9 K/uL (4.1-10.2)
[2017-09-16 06:22] LABS: CHLORIDE 108 MEQ/L (99-109); CREATININE 1.2 MG/DL (0.6-1.3); GFR ESTIMATE (CALCULATED) 46 mL/min/; GLUCOSE 126 mg/dL (70-99); POTASSIUM 4.4 MEQ/L (3.7-5.4); SODIUM 140 MEQ/L (136-147); UREA NITROGEN (BUN) 12 mg/dL (9-23)
[2017-09-16 07:21] VITALS: BP 138/67
[2017-09-16] MEDS ORDERED: POTASSIUM20 MEQ/11 PO (12:51)
[2017-09-16] MEDS ORDERED: ATORVASTATIN CA80 MG PO (12:51)
[2017-09-16] MEDS ORDERED: PANTOPRAZOLE SO40 MG PO (12:51)
[2017-09-16 13:32] VITALS: BP 123/68
[2017-09-16 16:03] VITALS: BP 113/60
[2017-09-16 19:06] VITALS: BP 138/61
[2017-09-17] VITALS (7 sets, daily range): BP systolic 93–145; BP diastolic 48–70
[2017-09-17 06:12] LABS: CHLORIDE 107 MEQ/L (99-109); GFR ESTIMATE (CALCULATED) 57 mL/min/; GLUCOSE 119 mg/dL (70-99); SODIUM 142 MEQ/L (136-147); UREA NITROGEN (BUN) 11 mg/dL (9-23)
[2017-09-18 03:21] VITALS: BP 96/52
[2017-09-18 07:33] VITALS: BP 101/68
[2017-09-18 11:16] VITALS: BP 112/56
[2017-09-18 16:20] VITALS: BP 102/52
[2017-09-18 20:27] VITALS: BP 92/50
[2017-09-18 23:47] VITALS: BP 93/51
[2017-09-19 04:15] VITALS: BP 130/88
[2017-09-19 07:15] LABS: HEMATOCRIT 27.7 % (36.0-46.0); HEMOGLOBIN 8.7 G/DL (11.9-15.5); MCH 27.6 PG (29.0-34.0); MCHC 31.4 G/DL (30.0-36.0); MCV 87.9 FL (83-99); PLATELET COUNT 184 K/uL (156-360); RBC DIS.WIDTH-CV 14.4 % (11.8-14.6); RBC DIS.WIDTH-SD 45.8 % (39-53); RED BLOOD COUNT 3.15 M/uL (3.80-5.20); WHITE BLOOD COUNT 3.7 K/uL (4.1-10.2)
[2017-09-19 07:39] LABS: ALBUMIN 2.2 G/DL (3.2-4.8); ALKALINE PHOSPHATASE 53 IU/L (3-129); ALT (GPT) 6 IU/L (3-49); AST (GOT) 12 IU/L (2-34); CHLORIDE 107 MEQ/L (99-109); CREATININE 1.1 MG/DL (0.6-1.3); GFR ESTIMATE (CALCULATED) 51 mL/min/; GLUCOSE 137 mg/dL (70-99); POTASSIUM 3.7 MEQ/L (3.7-5.4); SODIUM 139 MEQ/L (136-147); TOTAL BILIRUBIN 0.3 MG/DL (0.0-1.0); TOTAL PROTEIN 4.1 G/DL (6.4-8.3); UREA NITROGEN (BUN) 13 mg/dL (9-23)
[2017-09-19 08:02] VITALS: BP 113/56
== END 2017-09-19 13:58 | DRG 380 ==
LOC: DELPENDDIS → EME 13:34 → ENRESERV 17:25 → EDOF 17:30 → 4EAST 17:30 → ENRESERV 18:20 → 4EAST 19:26 → ENPENDDIS 09-16 15:30 → ENRESERV 09-17 20:58 → 2EAST 09-17 22:42
PROVIDERS: Emergency Medicine; Family Medicine; Internal Medicine; Internal Medicine Cardiovascular Disease
PROC: 0DC58ZZ Extirpation of Matter from Esophagus, Via Natural or Artificial Opening Endoscopic (ICD-10-PCS; principal; 2017-09-10)
PROC: 0DB38ZX Excision of Lower Esophagus, Via Natural or Artificial Opening Endoscopic, Diagnostic (ICD-10-PCS; principal; 2017-09-10)
PROC: 0DB58ZX Excision of Esophagus, Via Natural or Artificial Opening Endoscopic, Diagnostic (ICD-10-PCS; 2017-09-11)
PROC: 0DC58ZZ Extirpation of Matter from Esophagus, Via Natural or Artificial Opening Endoscopic (ICD-10-PCS; 2017-09-11)
PROC: 0DC28ZZ Extirpation of Matter from Middle Esophagus, Via Natural or Artificial Opening Endoscopic (ICD-10-PCS; 2017-09-18)
DX: K22.10 Ulcer of esophagus without bleeding (principal); G20 Parkinson's disease; N17.9 Acute kidney failure, unspecified; I11.0 Hypertensive heart disease with heart failure; R07.9 Chest pain, unspecified; I50.9 Heart failure, unspecified; E87.6 Hypokalemia; I45.10 Unspecified right bundle-branch block; I95.9 Hypotension, unspecified; R13.10 Dysphagia, unspecified; R11.2 Nausea with vomiting, unspecified; I25.10 Atherosclerotic heart disease of native coronary artery without angina pectoris; E53.8 Deficiency of other specified B group vitamins; D64.9 Anemia, unspecified; E78.5 Hyperlipidemia, unspecified; K21.9 Gastro-esophageal reflux disease without esophagitis; F02.80 Dementia in other diseases classified elsewhere, unspecified severity, without behavioral disturbance, psychotic disturbance, mood disturbance, and anxiety; J90 Pleural effusion, not elsewhere classified; J18.9 Pneumonia, unspecified organism; E11.9 Type 2 diabetes mellitus without complications; R53.1 Weakness; Z87.891 Personal history of nicotine dependence; Z95.5 Presence of coronary angioplasty implant and graft; I25.2 Old myocardial infarction; Z86.718 Personal history of other venous thrombosis and embolism; M81.0 Age-related osteoporosis without current pathological fracture; Z79.01 Long term (current) use of anticoagulants; K22.0 Achalasia of cardia
CPT/HCPCS: 71045; 71046; 74220; 80048; 80048 91; 80053; 82948; 83880; 84132 91; 84484; 85027; 87081; 87641; 88305; 93005; 94799; 99281; 99285; C9113; J0330; J1200; J1815; J2405; J3010; J3480; J7030; J7040; J7042

== ENCOUNTER 2017-09-29 10:54 | Observation (INO) | payer OTHER ==
[~2017-09-29] VITALS: Ht 157.5 cm; Wt 67.1 kg
[~2017-09-29 10:54] MED LIST changes: +ATORVASTATIN CA80 MG PO; +BISAC-EVAC10 MG PR; +BUSPAR10 MG PO; +CARAFATE1 GM PO; +DAKINS SOLUTIO473 M1 TP; +DUONEB 2.5-0.5 M3 ML AEROSOL; +ENULOSE10 GM/15 M PO; +FLEET ENEMA-AD118 ML PR; +GERI-HYDROLAC222 M1 TP; +IRON325 M1 PO; +MILK OF MAGN PO; +OMEPRAZOLE20 MG PO; +PAIN RELIEVER325 MG PO; +POTASSIUM20 MEQ/11 PO; +PRILOSEC20 MG PO; +REGLAN5 MG PO; +ROBITUSSIN COU237 M2 PO
[2017-09-29 14:43] LABS: HEMATOCRIT 30.1 % (36.0-46.0); HEMOGLOBIN 9.9 G/DL (11.9-15.5); MCH 27.8 PG (29.0-34.0); MCHC 32.9 G/DL (30.0-36.0); MCV 84.6 FL (83-99); PLATELET COUNT 153 K/uL (156-360); RBC DIS.WIDTH-CV 15.2 % (11.8-14.6); RBC DIS.WIDTH-SD 46.3 % (39-53); RED BLOOD COUNT 3.56 M/uL (3.80-5.20); WHITE BLOOD COUNT 4.2 K/uL (4.1-10.2)
[2017-09-29 14:54] LABS: CHLORIDE 113 mEq/L (99-109); POTASSIUM 4.1 mEq/L (3.7-5.4); SODIUM 142 mEq/L (136-147)
[2017-09-29 14:56] LABS: GLUCOSE 94 mg/dL (70-99)
[2017-09-29 15:00] LABS: CREATININE 0.8 mg/dL (0.6-1.3); GFR ESTIMATE (CALCULATED) > 59 mL/min/; UREA NITROGEN (BUN) 5 mg/dL (9-23)
[2017-09-29] MEDS ORDERED: MIRAPEX0.5 MG PO (17:35)
[2017-09-29] MEDS ORDERED: AMBIEN5 MG PO (17:44)
[2017-09-29 20:05] VITALS: BP 130/62
[2017-09-29 20:32] LABS: TROP-I INTERPRETATION NEGATIVE; TROPONIN-I 0.03 ng/mL (0.0-0.30)
[2017-09-29 23:57] VITALS: BP 117/55
[2017-09-30] VITALS (7 sets, daily range): BP systolic 103–146; BP diastolic 55–68
[2017-09-30 01:16] LABS: TROP-I INTERPRETATION NEGATIVE; TROPONIN-I 0.02 ng/mL (0.0-0.30)
[2017-09-30 05:26] LABS: HEMATOCRIT 28.5 % (36.0-46.0); HEMOGLOBIN 9.3 G/DL (11.9-15.5); MCH 27.5 PG (29.0-34.0); MCHC 32.6 G/DL (30.0-36.0); MCV 84.3 FL (83-99); PLATELET COUNT 153 K/uL (156-360); RBC DIS.WIDTH-CV 15.5 % (11.8-14.6); RBC DIS.WIDTH-SD 47.1 % (39-53); RED BLOOD COUNT 3.38 M/uL (3.80-5.20); WHITE BLOOD COUNT 3.6 K/uL (4.1-10.2)
[2017-09-30 05:52] LABS: CHLORIDE 108 MEQ/L (99-109); CREATININE 0.9 MG/DL (0.6-1.3); GFR ESTIMATE (CALCULATED) > 59 mL/min/; GLUCOSE 94 mg/dL (70-99); POTASSIUM 3.4 MEQ/L (3.7-5.4); SODIUM 141 MEQ/L (136-147); UREA NITROGEN (BUN) 5 mg/dL (9-23)
[2017-09-30] MEDS ORDERED: TRAMADOL HCL50 MG PO (12:48)
[2017-10-01 03:45] VITALS: BP 97/50
[2017-10-01 05:26] LABS: BASOPHIL (%) 0.3 % (0-1); EOSINOPHIL (%) 2.3 % (0-5); EOSINOPHIL COUNT 0.1 K/uL (0-0.3); HEMATOCRIT 29.4 % (36.0-46.0); HEMOGLOBIN 9.7 G/DL (11.9-15.5); IMMATURE GRANULOCYTE (%) 0.3 % (0.0-0.7); LYMPHOCYTE (%) 22.8 % (15-42); LYMPHOCYTE COUNT 0.9 K/uL (1.0-2.8); MCH 27.4 PG (29.0-34.0); MCV 83.1 FL (83-99); MONOCYTE (%) 8.5 % (3-12); MONOCYTE COUNT 0.3 K/uL (0-0.8); NEUTROPHIL (%) 65.8 % (45-76); NEUTROPHIL COUNT 2.6 K/uL (1.8-6.4); PLATELET COUNT 181 K/uL (156-360); RBC DIS.WIDTH-CV 15.5 % (11.8-14.6); RBC DIS.WIDTH-SD 46.8 % (39-53); RED BLOOD COUNT 3.54 M/uL (3.80-5.20)
[2017-10-01 06:52] LABS: CHLORIDE 105 MEQ/L (99-109); CREATININE 0.9 MG/DL (0.6-1.3); GFR ESTIMATE (CALCULATED) > 59 mL/min/; GLUCOSE 91 mg/dL (70-99); POTASSIUM 3.4 MEQ/L (3.7-5.4); SODIUM 144 MEQ/L (136-147); UREA NITROGEN (BUN) 6 mg/dL (9-23)
[2017-10-01 08:27] VITALS: BP 123/66
[2017-10-01 12:21] VITALS: BP 132/74
[2017-10-01] MEDS ORDERED: ELIQUIS5 MG PO (12:36)
[2017-10-01] MEDS ORDERED: METOCLOPRAMIDE10 MG PO (12:41)
[2017-10-01] MEDS ORDERED: LASIX20 MG PO (12:45)
== END 2017-10-01 14:35 ==
LOC: AMB 10:54 → EME 10:54 → AMB 11:00 → EDSTATUS 11:00 → 4SOUTH 18:47 → EDOF 18:47 → ENRESERV 18:49 → 4SOUTH 19:39
PROVIDERS: Emergency Medicine; Hospitalist; Internal Medicine Gastroenterology
PROC: 3E0G8GC Introduction of Other Therapeutic Substance into Upper GI, Via Natural or Artificial Opening Endoscopic (ICD-10-PCS; principal; 2017-09-30)
DX: K22.4 Dyskinesia of esophagus (principal); R13.10 Dysphagia, unspecified; K22.10 Ulcer of esophagus without bleeding; I89.0 Lymphedema, not elsewhere classified; R60.0 Localized edema; I27.20 Pulmonary hypertension, unspecified; D64.9 Anemia, unspecified; G20 Parkinson's disease; Z86.718 Personal history of other venous thrombosis and embolism; Z79.01 Long term (current) use of anticoagulants; I25.10 Atherosclerotic heart disease of native coronary artery without angina pectoris; Z95.5 Presence of coronary angioplasty implant and graft; E53.8 Deficiency of other specified B group vitamins; K22.2 Esophageal obstruction; I12.9 Hypertensive chronic kidney disease with stage 1 through stage 4 chronic kidney disease, or unspecified chronic kidney disease; N18.9 Chronic kidney disease, unspecified; E11.22 Type 2 diabetes mellitus with diabetic chronic kidney disease; E78.5 Hyperlipidemia, unspecified; I25.2 Old myocardial infarction; M10.9 Gout, unspecified; Z83.3 Family history of diabetes mellitus; Z82.5 Family history of asthma and other chronic lower respiratory diseases; Z84.1 Family history of disorders of kidney and ureter; Z88.6 Allergy status to analgesic agent; Z88.8 Allergy status to other drugs, medicaments and biological substances; Z91.040 Latex allergy status
CPT/HCPCS: 71046; 80048; 81003; 82948; 83880; 84484; 85025; 85027; 93005; 93970; 99281; 99285; G0378; J0585; J1940; J2765; J3480